=== PATIENT | female | born 1975 | race American Indian/Alaskan Native ===

== ENCOUNTER 2021-12-29 10:04 | Emergency (ER) | payer MEDICARE ==
[2021-12-29 10:27] VITALS: BP 140/82
[2021-12-29 13:16] LABS: Hematocrit 41.8 % (30.3-42.9); Hemoglobin 13.7 gm/dl (10.1-14.3); Mean Corpuscular HGB Conc 33 % (30-34); Mean Corpuscular Volume 95 fl (79-97); Platelet Count 317 K/mm3 (140-440); Red Blood Count 4.39 M/mm3 (3.65-5.03); Red Cell Distribution Width 13.2 % (13.2-15.2)
--- NOTE | 2021-12-29 13:25 | XRay Report ---
CHEST PA AND LATERAL VIEWS INDICATION: chest pain. COMPARISON: None. FINDINGS: Support devices: None. Heart: Within normal limits. Lungs/Pleura: No acute pulmonary or pleural findings. IMPRESSION: 1. No acute findings. Signer Name: Nikita Bolden MD Signed: 12/29/2021 1:21 PM Workstation Name: [id number]
[2021-12-29 13:40] LABS: Alanine Aminotransferase 26 units/L (7-56); Albumin 4.2 g/dL (3.9-5); BUN/Creatinine Ratio 12; Blood Urea Nitrogen 11 mg/dL (7-17); Calcium 8.8 mg/dL (8.4-10.2); Hemolysis Index 13
--- NOTE | 2021-12-29 13:50 | Emergency Department Report ---
ED Chest Pain HPI - General Chief Complaint: Chest Pain Stated Complaint: CHEST PAIN Time Seen by Provider: 12/29/21 12:49 Source: EMS Mode of arrival: Stretcher Limitations: No Limitations - History of Present Illness Initial Comments: 46-year-old black female with a past medical history of hypertension and diabetes and no known family history of CAD presents to the emergency department for evaluation of left chest pain that started this morning. She states that while at home this morning she started to have sharp left-sided chest pain that only lasted for few minutes. She states that pain was 9 out of 10, nonradiating, and not associated with shortness of breath, nausea, vomiting, dizziness, or diaphoresis. She states that pain has since resolved. MD Complaint: chest pain -: Sudden Onset: during rest Pain Location: left chest Pain Radiation: none Severity: severe Severity scale (0 -10): 6 Quality: sharp Consistency: now resolved Worsens With: palpation re: denies: nausea, vomting, diaphoresis, dyspnea, sense of impending doom Other Symptoms: denies: cough, fever, syncope, rash, acid taste in mouth, leg swelling, palpitations, burping Treatments Prior to Arrival: none Aspirin use within the Past 7 Days: (0) No - Related Data On Oral Contraceptives: No Allergies Allergy/AdvReac Type Severity Reaction Status Date / Time No Known Allergies Allergy Verified 12/29/21 10:27 Heart Score - HEART Score History: Slightly suspicious EKG: Normal Age: 45-65 Risk factors: 1-2 risk factors Troponin: < normal limit HEART Score: 2 - EKG Read Time Time EKG Completed: 10:10 EKG Read Time: 10:10 - Critical Actions Critical Actions: 0-3 pts:0.9-1.7%risk of adverse cardiac event.Candidate for discharge ED Review of Systems ROS: Stated complaint: CHEST PAIN Other details as noted in HPI Comment: All other systems reviewed and negative Constitutional: denies: chills, fever Eyes: denies: eye pain Respiratory: denies: cough, shortness of breath, SOB with exertion, SOB at rest Cardiovascular: chest pain. denies: palpitations, dyspnea on exertion, orthopnea, edema, syncope, paroxysmal nocturnal dyspnea Gastrointestinal: denies: abdominal pain, nausea, vomiting, diarrhea, hematemesis, melena Genitourinary: denies: as per HPI, dysuria Musculoskeletal: denies: back pain Neurological: denies: headache, weakness, numbness, paresthesias, abnormal gait, vertigo ED Past Medical Hx - Past Medical History Previous Medical History?: Yes Hx Hypertension: Yes Hx Diabetes: Yes ED Physical Exam - General Limitations: No Limitations General appearance: alert, in no apparent distress - Head Head exam: Present: atraumatic, normocephalic - Eye Eye exam: Present: normal appearance. Absent: conjunctival injection - Neck Neck exam: Present: normal inspection. Absent: tenderness, lymphadenopathy - Respiratory Respiratory exam: Present: normal lung sounds bilaterally, chest wall tenderness. Absent: respiratory distress, wheezes, rales, rhonchi, stridor, accessory muscle use - Cardiovascular Cardiovascular Exam: Present: regular rate, normal heart sounds - GI/Abdominal GI/Abdominal exam: Present: soft. Absent: distended, tenderness, guarding, rebound, rigid, normal bowel sounds - Extremities Exam Extremities exam: Present: normal inspection - Back Exam Back exam: Present: normal inspection. Absent: tenderness, CVA tenderness (R), CVA tenderness (L) - Neurological Exam Neurological exam: Present: alert, oriented X3, normal gait - Psychiatric Psychiatric exam: Present: normal affect, normal mood - Skin Skin exam: Present: warm, dry, intact, normal color ED Course Vital Signs 12/29/21 10:09 Temperature 98.4 F Pulse Rate 86 Respiratory 16 Rate Blood Pressure 140/82 [Left] O2 Sat by Pulse 100 Oximetry - Reevaluation(s) Reevaluation #1: 12/29/21 13:48 Patient continues to deny chest pain. No acute distress noted. ED Medical Decision Making - Lab Data Result diagrams: 12/29/21 12:58 12/29/21 12:58 - EKG Data Interpretation: no acute changes, normal EKG - Radiology Data Radiology results: report reviewed, image reviewed Chest x-ray: FINDINGS: Support devices: None. Heart: Within normal limits. Lungs/Pleura: No acute pulmonary or pleural findings. IMPRESSION: 1. No acute findings. - Medical Decision Making 46-year-old black female with a past medical history of hypertension and diabetes and no known family history of CAD presents to the emergency department for evaluation of left chest pain that started this morning. She states that while at home this morning she started to have sharp left-sided chest pain that only lasted for few minutes. She states that pain was 9 out of 10, nonrad iating, and not associated with shortness of breath, nausea, vomiting, dizziness, or diaphoresis. She states that pain has since resolved. Patient chest pain-free, EKG without any acute ischemic changes noted, troponin within normal limits, heart score of 2, and chest x-ray without any acute abnor malities. Low suspicion for CAD, and no acute distress noted. Patient will be discharged home to follow-up with cardiology for further evaluation and management. She is advised to return to the emergency department for any concerning symptoms. She verbalized understanding of and agreement with plan of care Critical care attestation.: If time is entered above; I have spent that time in minutes in the direct care of this critically ill patient, excluding procedure time. ED Disposition Clinical Impression: Chest pain Qualifiers: Chest pain type: unspecified Qualified Code(s): R07.9 - Chest pain, unspecified Disposition: 01 HOME / SELF CARE / HOMELESS Is pt being admited?: No Does the pt Need Aspirin: No Condition: Stable Instructions: Nonspecific Chest Pain, Adult, [id number] Additional Instructions: Follow-up with contact lens blocker for further evaluation and management. Return to the emergency department for any concerning symptoms. Referrals: [facility] MD JASIEL [Primary Care Provider] - 3-5 Days PEDRO GIL MD [Staff Physician] - 3-5 Days Forms: Work/School Release Form(ED)
--- NOTE | 2021-12-31 08:44 | Electrocardiograph Report ---
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
== END 2021-12-29 14:05 | disposition home or self-care (01) ==
LOC: ED 10:04
DX: R07.89 Other chest pain (principal); I10 Essential (primary) hypertension; E11.9 Type 2 diabetes mellitus without complications; Z98.890 Other specified postprocedural states
CPT/HCPCS: 36415; 71046; 80053; 84484; 85027; 93005; 99284

== ENCOUNTER 2022-04-06 12:49 | Emergency (ER) | payer MEDICARE ==
--- NOTE | 2022-04-06 15:01 | Emergency Department Report ---
ED Chest Pain HPI - General Chief Complaint: Chest Pain Stated Complaint: CHEST PAIN Time Seen by Provider: 04/06/22 14:38 Source: patient, EMS Mode of arrival: Stretcher Limitations: No Limitations - History of Present Illness Initial Comments: 46-year-old was admitted female with past medical history of hypertension and diabetes presents emerged department complaining of onset of chest pain while she was at work this morning and a stress situation. Around 10 or 11:00 today she was at work and states that she was in a very stress and setting situation resulting in her having some chest discomfort. The situation stemmed around some boxes that she had to move. She reports coming down and having her symptoms slowly resolved but then they began to reemerge which was prompted her visit to the emergency department when her chest pain reemerged it was more tight and squeezing in nature and associated with some shortness of breath but she reports no presyncope.. She denies any nausea, vomiting, fever, chills, sweats., Hemoptysis, hematemesis, hematochezia.. No lower extremity swelling. MD Complaint: chest pain -: Gradual Pain Location: substernal, left chest Pain Radiation: none Severity scale (0 -10): 4 Consistency: constant Improves With: nothing Worsens With: nothing Other Symptoms: denies: syncope, acid taste in mouth, leg swelling Treatments Prior to Arrival: none - Related Data Allergies Allergy/AdvReac Type Severity Reaction Status Date / Time No Known Allergies Allergy Verified 12/29/21 10:27 Heart Score - HEART Score History: Slightly suspicious EKG: Normal Age: < 45 Risk factors: > 3 risk factors or hx of atherosclerotic disease Troponin: < normal limit HEART Score: 2 - EKG Read Time Time EKG Completed: 14:56 EKG Read Time: 14:59 ED Review of Systems ROS: Stated complaint: CHEST PAIN Other details as noted in HPI Comment: All other systems reviewed and negative ED Past Medical Hx - Past Medical History Hx Hypertension: Yes Hx Diabetes: Yes ED Physical Exam - General Limitations: No Limitations General appearance: alert, in no apparent distress, other (Patient is in a jovial mood speaking in full sentences no signs of any respiratory distress) - Head Head exam: Present: atraumatic, normocephalic - Eye Eye exam: Present: normal appearance - ENT ENT exam: Present: mucous membranes moist - Neck Neck exam: Present: normal inspection - Respiratory Respiratory exam: Present: normal lung sounds bilaterally, chest wall tenderness (There is no chest wall tenderness with palpation along the right sternal border. Also some mild pain with opposed adduction. No subcutaneous emphysema. No crepitus). Absent: respiratory distress, rales, rhonchi - Cardiovascular Cardiovascular Exam: Present: regular rate, normal rhythm. Absent: systolic murmur, diastolic murmur, rubs, gallop - GI/Abdominal GI/Abdominal exam: Present: soft, normal bowel sounds - Extremities Exam Extremities exam: Present: normal inspection - Back Exam Back exam: Present: normal inspection - Neurological Exam Neurological exam: Present: alert, oriented X3 - Psychiatric Psychiatric exam: Present: normal affect, normal mood - Skin Skin exam: Present: warm, dry, intact, normal color. Absent: rash ED Course Vital Signs 04/06/22 04/06/22 04/06/22 12:55 13:28 13:29 Temperature 98.2 F 98.1 F Pulse Rate 90 85 Respiratory 16 11 L Rate Blood Pressure Blood Pressure 130/96 145/76 [Right] O2 Sat by Pulse 98 98 Oximetry 04/06/22 04/06/22 04/06/22 13:31 13:45 14:01 Temperature Pulse Rate 77 75 81 Respiratory 9 L 24 17 Rate Blood Pressure Blood Pressure [Right] O2 Sat by Pulse 99 98 98 Oximetry 04/06/22 04/06/22 04/06/22 14:15 14:31 14:45 Temperature Pulse Rate 81 86 74 Respiratory 20 19 19 Rate Blood Pressure 132/61 Blood Pressure [Right] O2 Sat by Pulse 98 99 98 Oximetry 04/06/22 04/06/22 04/06/22 15:00 15:29 15:31 Temperature Pulse Rate 79 83 75 Respiratory 22 21 Rate Blood Pressure 132/61 141/66 141/66 Blood Pressure [Right] O2 Sat by Pulse 98 Oximetry 04/06/22 04/06/22 04/06/22 15:45 16:01 16:15 Temperature Pulse Rate 89 83 73 Respiratory 20 15 20 Rate Blood Pressure 146/67 141/66 141/66 Blood Pressure [Right] O2 Sat by Pulse 97 98 99 Oximetry 04/06/22 04/06/22 04/06/22 16:31 16:47 17:01 Temperature Pulse Rate 74 72 Respiratory 19 14 Rate Blood Pressure 141/66 141/66 175/81 Blood Pressure [Right] O2 Sat by Pulse 98 Oximetry CHRISTIAN score - Christian Score Age > 65: (0) No Aspirin use within the Past 7 Days: (0) No 3 or more CAD Risk Factors: (1) Yes 2 or more Angina events in past 24 hrs: (0) No Known CAD with more than 50% Stenosis: (0) No Elevated Cardiac Markers: (0) No ST Deviation Greater than 0.5mm: (0) No CHRISTIAN Score: 1 ED Medical Decision Making - Lab Data Result diagrams: 04/06/22 15:03 04/06/22 15:03 Lab Results 04/06/22 04/06/22 Range/Units 15:03 15:03 WBC 9.7 (4.5-11.0) K/mm3 RBC 4.17 (3.65-5.03) M/mm3 Hgb 13.1 (10.1-14.3) gm/dl Hct 39.5 (30.3-42.9) % MCV 95 (79-97) fl MCH 31 (28-32) pg MCHC 33 (30-34) % RDW 13.6 (13.2-15.2) % Plt Count 312 (140-440) K/mm3 Lymph % (Auto) 28.5 (13.4-35.0) % [place] % (Auto) 6.0 (0.0-7.3) % Eos % (Auto) 1.5 (0.0-4.3) % Baso % (Auto) 0.7 (0.0-1.8) % Lymph # (Auto) 2.8 (1.2-5.4) K/mm3 [place] # (Auto) 0.6 (0.0-0.8) K/mm3 Eos # (Auto) 0.1 (0.0-0.4) K/mm3 Baso # (Auto) 0.1 (0.0-0.1) K/mm3 Seg Neutrophils % 63.3 (40.0-70.0) % Seg Neutrophils # 6.1 (1.8-7.7) K/mm3 Sodium 143 (137-145) mmol/L Potassium 4.0 (3.6-5.0) mmol/L Chloride 106.8 (98-107) mmol/L Carbon Dioxide 25 (22-30) mmol/L Anion Gap 15 mmol/L BUN 14 (7-17) mg/dL Creatinine 0.9 (0.6-1.2) mg/dL Estimated GFR > 60 ml/min BUN/Creatinine Ratio 16 % Glucose 89 (65-100) mg/dL Calcium 8.9 (8.4-10.2) mg/dL Total Bilirubin 0.60 (0.1-1.2) mg/dL AST 20 (5-40) units/L ALT 29 (7-56) units/L Alkaline Phosphatase 96 (35-129) units/L Troponin T < 0.010 (0.00-0.029) ng/mL Total Protein 6.7 (6.3-8.2) g/dL Albumin 4.1 (3.9-5) g/dL Albumin/Globulin Ratio 1.6 % - EKG Data -: EKG Interpreted by Ok EKG shows normal: sinus rhythm Rate: normal - EKG Data When compared to previous EKG there are: no significant change Interpretation: no acute changes - Radiology Data Radiology results: report reviewed [address] [address] XRay Report Signed Patient: CHRIST RUBALCAVA MR#: [id number] : 1975 Acct:[id number] Age/Sex: 46 / F ADM Date: 04/06/22 Loc: ED Attending Dr: Ordering Physician: ANYA FREED Date of Service: 04/06/22 Procedure(s): XR chest routine 2V Accession Number(s): [id number] cc: ANYA FREED Fluoro Time In Minutes: CHEST 2 VIEWS INDICATION / CLINICAL INFORMATION: Chest pain. COMPARISON: 12/29/2021 FINDINGS: SUPPORT DEVICES: None. HEART / MEDIASTINUM: No significant abnormality. LUNGS / PLEURA: No significant pulmonary or pleural abnormality. No pneumothorax. ADDITIONAL FINDINGS: No significant additional findings. IMPRESSION: 1. No acute findings. Signer Name: Pepe Willett Jr, MD Signed: 04/06/2022 3:17 PM Workstation Name: [id number] Transcribed By: TTR Dictated By: PEPE WILLETT JR, MD Electronically Authenticated By: PEPE WILLETT JR, MD Signed Date/Time: 04/06/221516 DD/ 16 TD/TT: - Medical Decision Making This patient presents with chest pain that is very unlikely angina or acute coronary syndrome. The emergency department evaluation has not identified any cause for suspicion that this chest pain has a cardiac etiology. Based on their history, EKG (which showed no evidence of ischemia or infarction) and imaging, in addition to the patient's physical exam, I see no evidence at this time for a malignant etiology for the patient's chest pain. There is no acute evidence for pulmonary embolus, acute myocardial infarction, pneumothorax, Boerhaeve syndrome, cardiac tamponade, thoracic artery dissection, or any other emergent cardiac, pulmonary or aortic pathology. Given the low pre-test probability for cardiac etiology of chest pain and the absence of any sign of ischemia or infarction, discharge for outpatient follow-up and further evaluation is reasonable. I have explained to the patient that even though a cardiac problem is very unlikely, follow-up and further testing is required to reduce further the al ready small uncertainty that exists. Other life-threatening diagnoses have been considered. The patient understands the need to return immediately if their symptoms worsen or they develop any new symptoms, and not to engage in any significant exertional activity until follow-up is obtained. Critical care attestation.: If time is entered above; I have spent that time in minutes in the direct care of this critically ill patient, excluding procedure time. ED Disposition Clinical Impression: Chest pain Disposition: HOME / SELF CARE / HOMELESS Is pt being admited?: No Does the pt Need Aspirin: No Condition: Stable Instructions: Nonspecific Chest Pain, Adult, Physical Activity With Heart Disease Referrals: PEDRO GIL MD [Staff Physician] - 3-5 Days Forms: Work/School Release Form(ED)
--- NOTE | 2022-04-06 15:22 | XRay Report ---
CHEST 2 VIEWS INDICATION / CLINICAL INFORMATION: Chest pain. COMPARISON: 12/29/2021 FINDINGS: SUPPORT DEVICES: None. HEART / MEDIASTINUM: No significant abnormality. LUNGS / PLEURA: No significant pulmonary or pleural abnormality. No pneumothorax. ADDITIONAL FINDINGS: No significant additional findings. IMPRESSION: 1. No acute findings. Signer Name: Pepe Willett Jr, MD Signed: 04/06/2022 3:17 PM Workstation Name: [id number]
[2022-04-06 15:32] LABS: Basophils # (Auto) 0.1 K/mm3 (0.0-0.1); Basophils % (Auto) 0.7 % (0.0-1.8); Eosinophils # (Auto) 0.1 K/mm3 (0.0-0.4); Eosinophils % (Auto) 1.5 % (0.0-4.3); Hematocrit 39.5 % (30.3-42.9); Hemoglobin 13.1 gm/dl (10.1-14.3); Lymphocytes # (Auto) 2.8 K/mm3 (1.2-5.4); Lymphocytes % (Auto) 28.5 % (13.4-35.0); Mean Corpuscular HGB Conc 33 % (30-34); Mean Corpuscular Volume 95 fl (79-97); Monocytes # (Auto) 0.6 K/mm3 (0.0-0.8); Platelet Count 312 K/mm3 (140-440); Red Blood Count 4.17 M/mm3 (3.65-5.03); Red Cell Distribution Width 13.6 % (13.2-15.2)
[2022-04-06 15:48] LABS: Alanine Aminotransferase 29 units/L (7-56); Albumin 4.1 g/dL (3.9-5); BUN/Creatinine Ratio 16; Blood Urea Nitrogen 14 mg/dL (7-17); Calcium 8.9 mg/dL (8.4-10.2); Hemolysis Index 10
[2022-04-06 17:14] VITALS: BP 175/81
--- NOTE | 2022-04-08 19:32 | Electrocardiograph Report ---
[facility] Test Date: 2022-04-06 Test Time: 16:49:10 Pat Name: CHRIST RUBALCAVA Department: Room: Gender: F Cooker Tender: CHEYENNE : 1975 Requested By: FIONA SHERIFF Order Number: [id number] Reading MD: Twila Parrish Measurements Intervals [place] Rate: 71 P: 31 CT: 138 QRS: 36 QRSD: 92 T: 26 QT: 422 QTc: 459 Interpretive Statements Sinus rhythm Consider left ventricular hypertrophy ST elev, probable normal early repol pattern Compared to ECG 12/29/2021 10:09:49 No significant change Electronically Signed On 04-08-2022 19:32:42 EDT by Twila Parrish
== END 2022-04-06 19:30 | disposition home or self-care (01) ==
LOC: ED 12:49
DX: R07.9 Chest pain, unspecified (principal); I10 Essential (primary) hypertension; E11.9 Type 2 diabetes mellitus without complications
CPT/HCPCS: 36415; 71046; 80053; 84484; 85025; 93005; 99284

== ENCOUNTER 2022-06-14 08:23 | Emergency (ER) | payer MEDICARE ==
[2022-06-14 08:30] VITALS: BP 151/74
--- NOTE | 2022-06-15 13:20 | Electrocardiograph Report ---
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
== END 2022-06-14 11:00 | disposition left against medical advice (07) ==
LOC: ED 08:23
DX: R07.9 Chest pain, unspecified (principal); Z53.21 Procedure and treatment not carried out due to patient leaving prior to being seen by health care provider
CPT/HCPCS: 93005